=== PATIENT | female | born 1995 | race Caucasian/White ===

== ENCOUNTER 2021-04-28 12:10 | Emergency (ER) | payer OTHER ==
[2021-04-28 13:16] LABS: HEMOGLOBIN 17.2 gm/dl (12.3-15.3); RED BLOOD COUNT 5.25 M/UL (4.00-5.10); WHITE BLOOD COUNT 4.8 K/UL (4.5-11.0)
[2021-04-28 13:43] LABS: BUN/CREATININE RATIO 19 (0-10)
[2021-04-28] MEDS ORDERED: ZOFRAN4 MG PO (14:21)
== END 2021-04-28 14:28 | disposition home or self-care (01) ==
LOC: ER1 12:10
PROVIDERS: Physician Assistant
DX: U07.1 COVID-19 (principal)
CPT/HCPCS: 80053; 85025; 99284